=== PATIENT | female | born 1990 | race Caucasian/White ===

== ENCOUNTER 2020-07-31 11:52 | Outpatient (CLI) | payer OTHER ==
[~2020-07-31 11:52] MED LIST: DOCU-131 PO; IBUP-1223 PO; OXYC-302 PO
== END 2020-07-31 23:59 | disposition home or self-care (01) ==
LOC: RAD 11:52
PROVIDERS: ATTEND Family Medicine
DX: Z02.9 Encounter for administrative examinations, unspecified (principal)